=== PATIENT | female | born 1940 | race Caucasian/White ===

== ENCOUNTER 2021-05-26 16:30 | Emergency (ER) | payer MEDICARE, BC ==
[~2021-05-26] VITALS: Ht 165.1 cm; Wt 60.0 kg
[2021-05-26 17:07] LABS: HEMATOCRIT 34.3 % (37.0-47.0); HEMOGLOBIN 10.8 g/dl (12.0-16.0); IMMATURE GRANULOCYTES 0.1 % (0.0-5.0); MEAN CELL VOLUME 102.7 fL CALC (80.0-100.0); MEAN CORPUSCULAR HGB 32.3 pG CALC (26.0-32.0); MEAN CORPUSCULAR HGB CONC 31.5 g/dL CAL (32.0-36.0); NEUT# 6.14 thou/uL (2.00-7.15); RED BLOOD COUNT 3.34 mill/uL (4.20-5.60); RED CELL DISTRI WIDTH 15.1 % (11.5-15.5)
[2021-05-26] MEDS ORDERED: ASPIRIN ADULT L81 M2 PO (17:16)
[2021-05-26] MEDS ORDERED: BUPROPN HCL300 MG PO (17:17)
[2021-05-26 17:18] LABS: ALBUMIN 3.8 g/dL (3.2-5.0); ALKALINE PHOSPHATASE 69 u/l (38-126); ANION GAP 12 (6-22 (CALC)); BILIRUBIN, TOTAL 0.9 mg/dL (0.0-1.4); BUN 26 mg/dL (8-23); BUN/CREATININE RATIO 17 (12-20 (CALC)); CARBON DIOXIDE 25 mmol/l (22-30); CHLORIDE 105 mmol/l (95-108); CREATININE 1.6 mg/dL (0.5-1.0); GFR 31 ML/MIN (>=60 (CALC)); GFR FOR AFR.AMER. 37 ML/MIN (>=60 (CALC)); POTASSIUM 3.7 mmol/l (3.5-5.1); SGOT/AST 26 u/l (9-36); SODIUM 138 mmol/l (137-146); TOTAL PROTEIN 6.7 g/dL (6.3-8.2)
[2021-05-26] MEDS ORDERED: MEMANTINE HYDROC5 MG PO (17:18)
[2021-05-26] MEDS ORDERED: DONEPEZIL HCL10 M1 PO (17:18)
[2021-05-26] MEDS ORDERED: DIOVAN80 MG PO (17:19)
[2021-05-26] MEDS ORDERED: SIMVASTATIN10 MG PO (17:19)
[2021-05-26] MEDS ORDERED: SINGULAIR10 MG PO (17:19)
[2021-05-26 19:53] VITALS: BP 116/50
== END 2021-05-26 19:52 | disposition short-term general hospital (02) ==
LOC: ED 16:30
PROVIDERS: Family Medicine
DX: S72.142A Displaced intertrochanteric fracture of left femur, initial encounter for closed fracture (principal); I10 Essential (primary) hypertension; F03.90 Unspecified dementia, unspecified severity, without behavioral disturbance, psychotic disturbance, mood disturbance, and anxiety; W01.0XXA Fall on same level from slipping, tripping and stumbling without subsequent striking against object, initial encounter; Y92.099 Unspecified place in other non-institutional residence as the place of occurrence of the external cause

== ENCOUNTER 2024-03-29 14:35 | Emergency (ER) | payer MEDICARE, BC ==
[~2024-03-29] VITALS: Ht 165.1 cm; Wt 65.0 kg
[~2024-03-29 14:35] MED LIST: ASPIRIN ADULT L81 M2 PO; BUPROPN HCL300 MG PO; DIOVAN80 MG PO; DONEPEZIL HCL10 M1 PO; MEMANTINE HYDROC5 MG PO; SIMVASTATIN10 MG PO; SINGULAIR10 MG PO
[2024-03-29 15:13] LABS: BASO% 0.7 % (0-3); EOS% 0.1 % (0-8); HEMATOCRIT 37.7 % (37.0-47.0); HEMOGLOBIN 12.5 g/dl (12.0-16.0); IMMATURE GRANULOCYTES 0.3 % (0.0-5.0); MEAN CORPUSCULAR HGB 29.9 pG CALC (26.0-32.0); MEAN CORPUSCULAR HGB CONC 33.2 g/dL CAL (32.0-36.0); MONO% 7.2 % (2-13); NEUT# 6.25 thou/uL (2.00-7.15); NEUT% 82.7 % (42-76); RED BLOOD COUNT 4.18 mill/uL (4.20-5.60); RED CELL DISTRI WIDTH 15.7 % (11.5-15.5)
[2024-03-29 15:15] LABS: URINE BLOOD DIPSTICK Negative (NEGATIVE); URINE GLUCOSE - DIPSTICK Negative (NEGATIVE); URINE KETONE 40 mg/dL (NEGATIVE); URINE LEUK ESTERASE Negative (NEGATIVE); URINE NITRITE - DIPSTICK Negative (Negative); URINE PROTEIN - DIPSTICK 30 mg/dL (NEG-TRACE); URINE SPECIFIC GRAVITY 1.025
[2024-03-29 15:16] LABS: MEAN CELL VOLUME 90.2 fL CALC (80.0-100.0)
[2024-03-29 15:26] VITALS: BP 148/110
[2024-03-29 15:26] LABS: ALKALINE PHOSPHATASE 73 u/l (38-126); ANION GAP 19 (6-22 (CALC)); BUN 30 mg/dL (8-23); BUN/CREATININE RATIO 29 (12-20 (CALC)); CARBON DIOXIDE 22 mmol/l (22-30); CHLORIDE 103 mmol/l (95-108); ESTIMATED GFR 55 ML/MIN (>=90 (CALC)); POTASSIUM 3.8 mmol/l (3.5-5.1); SGOT/AST 44 u/l (9-36); SODIUM 141 mmol/l (137-146); TOTAL PROTEIN 7.6 g/dL (6.3-8.2)
[2024-03-29 15:26] LABS: URINE COLOR Yellow
[2024-03-29 15:27] LABS: URINE SQUAMOUS EPITHELIAL CELL RARE EPI/hpf (0-FEW)
[2024-03-29 15:28] LABS: ALBUMIN 4.8 g/dL (3.2-5.0)
[2024-03-29] MEDS ORDERED: HALOPERIDOL LACTATE 5 MG/ML SDV IM ONE (16:40)
== END 2024-03-29 18:14 | disposition home or self-care (01) ==
LOC: ED 14:35
PROVIDERS: Family Medicine
DX: S60.212A Contusion of left wrist, initial encounter (principal); M25.552 Pain in left hip; I10 Essential (primary) hypertension; W19.XXXA Unspecified fall, initial encounter; Y92.099 Unspecified place in other non-institutional residence as the place of occurrence of the external cause

== ENCOUNTER 2024-05-18 11:48 | Emergency (ER) | payer MEDICARE, BC ==
[~2024-05-18] VITALS: Ht 165.1 cm; Wt 45.0 kg
[2024-05-18 12:03] VITALS: BP 180/84
[2024-05-18 12:04] VITALS: BP 151/79
[2024-05-18 12:34] VITALS: BP 151/79
== END 2024-05-18 13:33 | disposition home or self-care (01) ==
LOC: ED 11:48
DX: M25.551 Pain in right hip (principal); I10 Essential (primary) hypertension; G30.9 Alzheimer's disease, unspecified; F02.80 Dementia in other diseases classified elsewhere, unspecified severity, without behavioral disturbance, psychotic disturbance, mood disturbance, and anxiety; I12.9 Hypertensive chronic kidney disease with stage 1 through stage 4 chronic kidney disease, or unspecified chronic kidney disease; N18.9 Chronic kidney disease, unspecified; E78.5 Hyperlipidemia, unspecified

== ENCOUNTER 2024-05-20 18:01 | Emergency (ER) | payer MEDICARE, BC ==
[~2024-05-20] VITALS: Ht 165.1 cm; Wt 49.8 kg
[2024-05-20 18:12] VITALS: BP 152/70
[2024-05-20 18:30] VITALS: BP 144/71
[2024-05-20] MEDS ORDERED: Diph, Acellular Pertussis, Tet 0.5 ML/VIAL (Tdap) SDV IM ONE (19:15)
[2024-05-20 19:25] VITALS: BP 144/71
== END 2024-05-20 19:35 ==
LOC: ED 18:01
DX: S51.012A Laceration without foreign body of left elbow, initial encounter (principal); I12.9 Hypertensive chronic kidney disease with stage 1 through stage 4 chronic kidney disease, or unspecified chronic kidney disease; N18.9 Chronic kidney disease, unspecified; G30.9 Alzheimer's disease, unspecified; F02.C0 Dementia in other diseases classified elsewhere, severe, without behavioral disturbance, psychotic disturbance, mood disturbance, and anxiety; E78.5 Hyperlipidemia, unspecified; W05.0XXA Fall from non-moving wheelchair, initial encounter; Y92.099 Unspecified place in other non-institutional residence as the place of occurrence of the external cause; S60.222A Contusion of left hand, initial encounter; F02.80 Dementia in other diseases classified elsewhere, unspecified severity, without behavioral disturbance, psychotic disturbance, mood disturbance, and anxiety; Y92.89 Other specified places as the place of occurrence of the external cause; S50.312D Abrasion of left elbow, subsequent encounter; W19.XXXD Unspecified fall, subsequent encounter
CPT/HCPCS: 90715

== ENCOUNTER 2024-05-20 20:21 | Emergency (ER) | payer MEDICARE, BC ==
[~2024-05-20] VITALS: Ht 165.1 cm; Wt 40.0 kg
[2024-05-20 20:30] VITALS: BP 175/78
[2024-05-20 20:59] VITALS: BP 148/69
[2024-05-20 22:20] VITALS: BP 148/69
== END 2024-05-20 23:23 ==
LOC: ED 20:21
DX: S60.222A Contusion of left hand, initial encounter (principal); G30.9 Alzheimer's disease, unspecified; F02.80 Dementia in other diseases classified elsewhere, unspecified severity, without behavioral disturbance, psychotic disturbance, mood disturbance, and anxiety; I12.9 Hypertensive chronic kidney disease with stage 1 through stage 4 chronic kidney disease, or unspecified chronic kidney disease; N18.9 Chronic kidney disease, unspecified; E78.5 Hyperlipidemia, unspecified; W05.0XXA Fall from non-moving wheelchair, initial encounter; Y92.89 Other specified places as the place of occurrence of the external cause; S50.312D Abrasion of left elbow, subsequent encounter; W19.XXXD Unspecified fall, subsequent encounter